=== PATIENT | female | born 1960 | race Caucasian/White ===

== ENCOUNTER → 2018-01-30 | Outpatient (CLI) | payer BC ==
[~2018-01-30] MED LIST: ASPI-515 PO; BLAC160C PO; CHOL500015 PO; DEXL60CA2 PO; LORA10TA37 PO; MULTIVITAMIN PO; POTASSIUM PO; SOTA80TA PO; SOY PO
== END | disposition home or self-care (01) ==
LOC: CARD 09:14
PROVIDERS: ATTEND General Practice
DX: R07.9 Chest pain, unspecified (principal); I42.9 Cardiomyopathy, unspecified; I48.91 Unspecified atrial fibrillation; Z95.810 Presence of automatic (implantable) cardiac defibrillator
CPT/HCPCS: 93017; 93350